=== PATIENT | male | born 1980 | race Caucasian/White ===

== ENCOUNTER 2019-03-15 23:11 | Emergency (ER) | payer OTHER ==
[~2019-03-15] VITALS: Ht 170.2 cm; Wt 72.7 kg
[~2019-03-15 23:11] MED LIST: AMOXICILLIN500 MG OR; AUGMENTIN875TAB PO; CELEBREX200 MG OR; FLEXERIL OR; FLEXERIL PO; FLEXERIL10 MG PO; LORTAB 5 OR; LORTAB 7.5 OR; LORTAB5 OR; MEDDOSEPAK OR; MEDDOSEPAK PO; NAPROSYN500 MG PO; NO HOME MEDS; PERCOCET 5/325M1 TAB OR; POLYTRIM OP; SOMA350 MG OR; TRAMADOL HCL50 MG OR; ULTRAM50 M1 OR; ULTRAM50 M1 PO
[2019-03-16] MEDS ORDERED: PERCOCET 5/325M1 TAB PO ×2 (00:37→08:08)
[2019-03-16 01:00] VITALS: BP 131/86
[2019-03-16] MEDS ORDERED: MOTRIN400 MG PO (08:04)
== END 2019-03-16 01:04 | disposition home or self-care (01) ==
LOC: ED 23:11
DX: S92.341A Displaced fracture of fourth metatarsal bone, right foot, initial encounter for closed fracture (principal); S92.351A Displaced fracture of fifth metatarsal bone, right foot, initial encounter for closed fracture; W01.0XXA Fall on same level from slipping, tripping and stumbling without subsequent striking against object, initial encounter; Y92.009 Unspecified place in unspecified non-institutional (private) residence as the place of occurrence of the external cause

== ENCOUNTER 2019-04-13 06:35 | Emergency (ER) | payer OTHER ==
[~2019-04-13] VITALS: Ht 170.2 cm; Wt 63.6 kg
[~2019-04-13 06:35] MED LIST changes: +MOTRIN400 MG PO; +PERCOCET 5/325M1 TAB PO
[2019-04-13] MEDS ORDERED: TRAMADOL HCL50 MG PO (06:50)
[2019-04-13 08:03] LABS: HEMOGLOBIN 13.3 g/dl (14.0-18.0); MEAN CELL VOLUME 99.3 fL CALC (80.0-100.0); MEAN CORPUSCULAR HGB CONC 33.3 g/L CALC (32.0-36.0); RED BLOOD COUNT 4.03 mill/uL (4.70-6.10); RED CELL DISTRI WIDTH 11.7 % (11.5-15.5)
[2019-04-13 08:42] LABS: ALBUMIN 4.5 g/dL (3.2-5.0); ALKALINE PHOSPHATASE 80 u/l (38-126); ANION GAP 17 (6-22 (CALC)); BILIRUBIN, TOTAL 0.5 mg/dL (0.0-1.4); BUN 22 mg/dL (9-20); BUN/CREATININE RATIO 22 (12-20 (CALC)); CARBON DIOXIDE 22 mmol/l (22-30); CHLORIDE 107 mmol/l (95-108); ETHYL ALCOHOL 0 mg/dl (0-30); GFR > 60 ML/MIN (>=60 (CALC)); GFR FOR AFR.AMER. > 60 ML/MIN (>=60 (CALC)); POTASSIUM 3.7 mmol/l (3.5-5.1); SODIUM 142 mmol/l (137-146); TOTAL PROTEIN 6.9 g/dL (6.3-8.2)
[2019-04-13 08:49] LABS: SGOT/AST 34 u/l (17-59)
[2019-04-13] MEDS ORDERED: GABAPENTIN300 M2 PO (08:55)
[2019-04-13] MEDS ORDERED: PERCOCET 10/31 COMBO PO (08:57)
[2019-04-13] MEDS ORDERED: TORADOL PO (08:57)
[2019-04-13] MEDS ORDERED: KEFLEX500 M1 PO (08:59)
[2019-04-13 09:09] LABS: URINE BLOOD DIPSTICK LARGE (NEGATIVE); URINE COLOR YELLOW; URINE GLUCOSE - DIPSTICK NEGATIVE (NEGATIVE); URINE KETONE TRACE mg/dL (NEGATIVE); URINE LEUK ESTERASE NEGATIVE (NEGATIVE); URINE NITRITE - DIPSTICK NEGATIVE (Negative); URINE PH 5.5 (4.5-8.0); URINE PROTEIN - DIPSTICK 30 mg/dL (NEG-TRACE); URINE SPECIFIC GRAVITY >=1.030; URINE UROBILINOGEN - DIPSTICK 0.2 E.U./dL (0.2)
[2019-04-13 09:10] LABS: URINE BILIRUBIN - DIPSTICK SMALL (NEGATIVE)
[2019-04-13 09:13] LABS: COCAINE NEGATIVE (NEGATIVE); TETRAHYDROCANNABIONOL NEGATIVE (NEGATIVE); URINE AMORPH SEDIMENT MANY hpf (NONE-FER); URINE BACTERIA FEW hpf; URINE MUCUS MODERATE hpf (NONE-FEW); URINE SQUAMOUS EPITHELIAL CELL MODERATE EPI/hpf (0-FEW)
[2019-04-13 09:14] LABS: BARBITURATES NEGATIVE (NEGATIVE); METHADONE NEGATIVE (NEGATIVE); OXCYCODONE NEGATIVE (NEGATIVE); TRICYLIC ANTIDEPRESSANTS NEGATIVE (NEGATIVE)
[2019-04-13 10:33] VITALS: BP 111/62
== END 2019-04-13 10:45 | disposition home or self-care (01) ==
LOC: ED 06:35
PROVIDERS: Emergency Medicine
DX: S01.01XA Laceration without foreign body of scalp, initial encounter (principal); S01.111A Laceration without foreign body of right eyelid and periocular area, initial encounter; S30.811A Abrasion of abdominal wall, initial encounter; S20.312A Abrasion of left front wall of thorax, initial encounter; S20.311A Abrasion of right front wall of thorax, initial encounter; S50.311A Abrasion of right elbow, initial encounter; T14.8XXA Other injury of unspecified body region, initial encounter; R31.9 Hematuria, unspecified; R82.6 Abnormal urine levels of substances chiefly nonmedicinal as to source; F17.200 Nicotine dependence, unspecified, uncomplicated; V23.4XXA Motorcycle driver injured in collision with car, pick-up truck or van in traffic accident, initial encounter
CPT/HCPCS: Q9967

== ENCOUNTER 2019-04-17 04:38 | Emergency (ER) | payer OTHER ==
[~2019-04-17] VITALS: Ht 170.2 cm; Wt 68.1 kg
[~2019-04-17 04:38] MED LIST changes: +GABAPENTIN300 M2 PO; +KEFLEX500 M1 PO; +PERCOCET 10/31 COMBO PO; +TORADOL PO; +TRAMADOL HCL50 MG PO
--- NOTE | 2019-04-17 05:52 | NUR ---
BREATHING TREATMENT GIVEN FOR WHEEZING. BREATHING TECH FOR GOOD DEPOSITION TO THE LUNGS
[2019-04-17 06:02] LABS: HEMATOCRIT 38.5 % (39.0-50.0); HEMOGLOBIN 12.7 g/dl (14.0-18.0); IMMATURE GRANULOCYTES 0.4 % (0.0-5.0); MEAN CELL VOLUME 100.3 fL CALC (80.0-100.0); MEAN CORPUSCULAR HGB 33.1 pG CALC (26.0-32.0); NEUT# 5.4 thou/uL (1.82-7.42); RED BLOOD COUNT 3.84 mill/uL (4.70-6.10)
[2019-04-17 06:03] LABS: URINE BILIRUBIN - DIPSTICK NEGATIVE (NEGATIVE); URINE BLOOD DIPSTICK NEGATIVE (NEGATIVE); URINE COLOR YELLOW; URINE GLUCOSE - DIPSTICK NEGATIVE (NEGATIVE); URINE KETONE NEGATIVE (NEGATIVE); URINE LEUK ESTERASE NEGATIVE (NEGATIVE); URINE NITRITE - DIPSTICK NEGATIVE (Negative); URINE PROTEIN - DIPSTICK NEGATIVE (NEG-TRACE); URINE SPECIFIC GRAVITY <=1.005; URINE UROBILINOGEN - DIPSTICK 0.2 E.U./dL (0.2)
[2019-04-17 06:05] LABS: BARBITURATES NEGATIVE (NEGATIVE); COCAINE NEGATIVE (NEGATIVE); METHADONE NEGATIVE (NEGATIVE); OXCYCODONE POSITIVE (NEGATIVE); TETRAHYDROCANNABIONOL NEGATIVE (NEGATIVE); TRICYLIC ANTIDEPRESSANTS NEGATIVE (NEGATIVE)
[2019-04-17 06:23] LABS: ALBUMIN 3.8 g/dL (3.2-5.0); ALKALINE PHOSPHATASE 60 u/l (38-126); ANION GAP 10 (6-22 (CALC)); BILIRUBIN, TOTAL 0.4 mg/dL (0.0-1.4); BUN 10 mg/dL (9-20); BUN/CREATININE RATIO 10 (12-20 (CALC)); CARBON DIOXIDE 28 mmol/l (22-30); CHLORIDE 106 mmol/l (95-108); CREATININE 0.9 mg/dL (0.7-1.3); GFR > 60 ML/MIN (>=60 (CALC)); GFR FOR AFR.AMER. > 60 ML/MIN (>=60 (CALC)); POTASSIUM 4.3 mmol/l (3.5-5.1); SGOT/AST 14 u/l (17-59); SODIUM 140 mmol/l (137-146); TOTAL PROTEIN 6.2 g/dL (6.3-8.2)
[2019-04-17] MEDS ORDERED: TRAMADOL HCL50 MG PO (06:42)
[2019-04-17] MEDS ORDERED: TORADOL PO (06:42)
[2019-04-17] MEDS ORDERED: GOLYTELY4000 ML PO (06:42)
[2019-04-17 07:04] VITALS: BP 148/88
== END 2019-04-17 07:04 | disposition home or self-care (01) | DRG 605 ==
LOC: ED 04:38
PROVIDERS: Family Medicine
DX: S30.811A Abrasion of abdominal wall, initial encounter (principal); S30.810A Abrasion of lower back and pelvis, initial encounter; S20.419A Abrasion of unspecified back wall of thorax, initial encounter; S01.00XA Unspecified open wound of scalp, initial encounter; K59.00 Constipation, unspecified; F17.210 Nicotine dependence, cigarettes, uncomplicated; V89.2XXA Person injured in unspecified motor-vehicle accident, traffic, initial encounter

== ENCOUNTER 2022-11-11 08:19 | Emergency (ER) | payer SELFPAY ==
[~2022-11-11] VITALS: Ht 170.2 cm; Wt 70.5 kg
[~2022-11-11 08:19] MED LIST changes: +GOLYTELY4000 ML PO
[2022-11-11 08:43] VITALS: BP 68/38
[2022-11-11 08:55] LABS: BASO% 0.1 % (0-3); EOS% 0.3 % (0-8); IMMATURE GRANULOCYTES 0.5 % (0.0-5.0); LYMPH% 1.5 % (15-41); MEAN CORPUSCULAR HGB 33.1 pG CALC (26.0-32.0); MEAN CORPUSCULAR HGB CONC 35.4 g/dL CAL (32.0-36.0); MONO% 1.6 % (2-13); NEUT# 10.34 thou/uL (1.82-7.42); RED BLOOD COUNT 4.93 mill/uL (4.70-6.10); RED CELL DISTRI WIDTH 12.3 % (11.5-15.5)
[2022-11-11 09:00] LABS: INTERNATIONAL NORMALIZED RATIO 1.3 RATIO (0.7-1.3); PROTHROMBIN TIME 12.4 SECONDS (9.0-12.5)
[2022-11-11 09:04] LABS: ALBUMIN 3.6 g/dL (3.2-5.0); POTASSIUM 4.1 mmol/l (3.5-5.1); TOTAL PROTEIN 6.5 g/dL (6.3-8.2)
[2022-11-11 09:09] LABS: HEMATOCRIT 46.1 % (39.0-50.0); HEMOGLOBIN 16.3 g/dl (14.0-18.0); MEAN CELL VOLUME 93.5 fL CALC (80.0-100.0)
[2022-11-11 09:10] LABS: CREATININE 4.8 mg/dL (0.7-1.3)
[2022-11-11 09:11] LABS: BILIRUBIN, TOTAL 1.8 mg/dL (0.0-1.4)
--- NOTE | 2022-11-12 08:35 | NUR ---
CONTACTED RN FROM [facility] TO REPORT PRELIMINARY BC RESULTS OF GRAM (+) COCCI IN 2/3 BOTTLES. WAS INFORMED BY RN PT HAS . NO FURTHER FOLLOW UP WARRANTED.
== END 2022-11-11 12:32 | disposition short-term general hospital (02) | DRG 314 ==
LOC: ED 08:19
PROVIDERS: Emergency Medicine
DX: I95.9 Hypotension, unspecified (principal); A41.9 Sepsis, unspecified organism; J96.00 Acute respiratory failure, unspecified whether with hypoxia or hypercapnia; N17.9 Acute kidney failure, unspecified; Z72.0 Tobacco use
CPT/HCPCS: J2060